=== PATIENT | female | born 1970 | race Caucasian/White ===

== ENCOUNTER 2018-10-03 03:33 | Emergency (ER) | payer MEDICAID ==
[~2018-10-03] VITALS: Ht 172.7 cm; Wt 90.0 kg
[~2018-10-03 03:33] MED LIST: BLAC200C4 PO; BUSP5TAB3 PO; CARB100T7 PO; POTA99TA18 PO
[2018-10-03 03:40] VITALS: BP 150/82
--- NOTE | 2018-10-03 04:15 | NUR ---
Received ambulance, then returned to pt room. Pt gone. CRN and EDMD notified. Pt not yet seen by provider.
== END 2018-10-03 04:15 | disposition left against medical advice (07) ==
LOC: ER 03:34
DX: J34.89 Other specified disorders of nose and nasal sinuses (principal); Z53.21 Procedure and treatment not carried out due to patient leaving prior to being seen by health care provider

== ENCOUNTER 2018-10-08 19:51 | Emergency (ER) | payer MEDICAID ==
[~2018-10-08] VITALS: Ht 172.7 cm; Wt 90.0 kg
[2018-10-08 19:56] VITALS: BP 145/86
--- NOTE | 2018-10-08 20:17 | NUR ---
I had put the patient in the lab chair in the hallway by triage, she is gone. I have since let security know and charge. I have swept the parking lot and hallways of ER and checked the bathrooms. I have her meds here in triage. Security will check cameras.
--- NOTE | 2018-10-08 20:27 | NUR ---
brent barriga from lab chair in [facility] near triage security reviewed cameras which show the patient leaving the er and the er lobby
--- NOTE | 2018-10-08 20:31 | NUR ---
Security has photos of her leaving the area and going out the door to outside. Calling her number but there is a different name associated with it.
== END 2018-10-08 20:33 | disposition left against medical advice (07) ==
LOC: ER 19:51
DX: R45.851 Suicidal ideations (principal); Z88.2 Allergy status to sulfonamides; Z88.1 Allergy status to other antibiotic agents; Z88.8 Allergy status to other drugs, medicaments and biological substances; Z53.21 Procedure and treatment not carried out due to patient leaving prior to being seen by health care provider

== ENCOUNTER → 2019-04-13 | Emergency (ER) | payer MEDICAID ==
[~2019-04-13] VITALS: Ht 172.7 cm; Wt 90.9 kg
[2019-04-13 17:33] VITALS: BP 114/72
== END | disposition home or self-care (01) ==
LOC: ER 17:25
DX: R07.81 Pleurodynia (principal); K21.9 Gastro-esophageal reflux disease without esophagitis; F17.200 Nicotine dependence, unspecified, uncomplicated; Z88.2 Allergy status to sulfonamides; Z88.1 Allergy status to other antibiotic agents; Z79.899 Other long term (current) drug therapy; W07.XXXA Fall from chair, initial encounter; Y93.89 Activity, other specified; Y92.89 Other specified places as the place of occurrence of the external cause; Y99.9 Unspecified external cause status
CPT/HCPCS: 99284

== ENCOUNTER 2020-01-24 11:53 | Emergency (ER) | payer MEDICAID ==
[~2020-01-24] VITALS: Ht 175.3 cm; Wt 92.7 kg
[2020-01-24 12:12] VITALS: BP 141/84
== END 2020-01-24 14:46 | disposition left against medical advice (07) ==
LOC: ER 11:54
DX: R11.0 Nausea (principal); F32.9 Major depressive disorder, single episode, unspecified; F41.9 Anxiety disorder, unspecified; Z59.0 Homelessness; Z53.21 Procedure and treatment not carried out due to patient leaving prior to being seen by health care provider

== ENCOUNTER 2020-06-21 10:33 | Emergency (ER) | payer MEDICAID ==
[~2020-06-21] VITALS: Ht 172.7 cm; Wt 87.0 kg
[2020-06-21] MEDS ORDERED: ondansetron/PF 4mg/2ml inj IV ONE (10:45)
[2020-06-21] MEDS ORDERED: normal saline 1000ML IV soln IV ONE (10:45)
[2020-06-21 11:12] LABS: BASOPHILS # (AUTO) 0.1 X10'3 (0-0.2); BASOPHILS % (AUTO) 0.6 % (0-1); EOSINOPHILS % (AUTO) 0.3 % (0-6); HEMOGLOBIN 16.9 g/dl (12.0-16.0); LYMPHOCYTES # (AUTO) 2.8 X10'3 (1.1-4.8); LYMPHOCYTES % (AUTO) 25.3 % (21-51); MEAN CORPUSCULAR HEMOGLOBIN 31.8 PG (27.0-31.0); MEAN CORPUSCULAR HGB CONC 34.4 g/dL (33.0-36.5); MEAN CORPUSCULAR VOLUME 92.3 FL (78-98); MEAN PLATELET VOLUME 7.5 FL (7.4-10.4); MONOCYTES # (AUTO) 0.6 X10'3 (0-0.9); MONOCYTES % (AUTO) 5.6 % (2-12); NEUTROPHILS # (AUTO) 7.5 X10'3 (1.8-7.7); NEUTROPHILS % (AUTO) 68.2 % (42-75); PLATELET COUNT 333 X10'3 (140-440); RED BLOOD COUNT 5.31 X10'6 (4.20-5.60); RED CELL DISTRIBUTION WIDTH 13.7 % (11.5-14.5)
[2020-06-21] MEDS ORDERED: ondansetron 4mg rapidly disintigrating tab PO ONE (11:20)
[2020-06-21 11:25] LABS: ALANINE AMINOTRANSFERASE 20 U/L (12-78); ALBUMIN 4.4 G/DL (3.4-5.0); ALBUMIN/GLOBULIN RATIO 0.9 (1.1-1.5); ALKALINE PHOSPHATASE 87 IU/L (46-116); ANION GAP 9 (8-16); ASPARTATE AMINO TRANSFERASE 14 U/L (10-37); BILIRUBIN,TOTAL 0.5 MG/DL (0.1-1.0); BLOOD UREA NITROGEN 17 MG/DL (7-18); BUN/CREATININE RATIO 12.7 (6.6-38.0); CALCIUM 10.4 MG/DL (8.5-10.1); CHLORIDE 106 MMOL/L (99-107); CREATININE 1.34 MG/DL (0.40-0.90); GLUCOSE 132 MG/DL (70-104); POTASSIUM 3.8 MMOL/L (3.5-5.1); SODIUM 143 MMOL/L (135-145); TOTAL CARBON DIOXIDE 28.1 MMOL/L (24-32); TOTAL PROTEIN 9.4 G/DL (6.4-8.2); eGFR 42 ML/MIN
[2020-06-21] MEDS ORDERED: ALBU6.7H9 INH (11:27)
[2020-06-21] MEDS ORDERED: ONDA4TAB6 PO (11:27)
[2020-06-21 12:04] VITALS: BP 105/62
== END 2020-06-21 11:55 | disposition home or self-care (01) ==
LOC: ER 10:34
DX: U07.1 COVID-19 (principal); R11.0 Nausea; R10.84 Generalized abdominal pain; R51.9 Headache, unspecified; R05 Cough; R19.7 Diarrhea, unspecified; K21.9 Gastro-esophageal reflux disease without esophagitis; F41.9 Anxiety disorder, unspecified; F32.9 Major depressive disorder, single episode, unspecified; Z72.0 Tobacco use; Z60.2 Problems related to living alone; Z88.2 Allergy status to sulfonamides; Z88.1 Allergy status to other antibiotic agents; Z88.8 Allergy status to other drugs, medicaments and biological substances; Z79.899 Other long term (current) drug therapy
CPT/HCPCS: 36415; 71045; 80053; 85025; 93005; 96361; 96374; 99285; J2405; J7030

== ENCOUNTER 2021-01-12 10:25 | Emergency (ER) | payer MEDICAID ==
[~2021-01-12] VITALS: Ht 172.7 cm; Wt 92.3 kg
[~2021-01-12 10:25] MED LIST changes: +ALBU6.7H9 INH; +ONDA4TAB6 PO
[2021-01-12 10:30] VITALS: BP 106/81
[2021-01-12 11:10] LABS: URINE HCG NEGATIVE (NEG)
[2021-01-12 11:13] LABS: CLARITY,URINE CLOUDY (Clear); COLOR,URINE YELLOW (Yellow); GLUCOSE, URINE NEGATIVE (Neg); KETONES,URINE NEGATIVE (Neg); LEUKOCYTE ESTERASE ,URINE SMALL (Neg); NITRITES, URINE POSITIVE (Neg); OCCULT BLOOD,URINE TRACE-INTACT (Neg); PROTEIN,URINE 30 mg/dl (Neg); UA COLLECTION TYPE CLN CATCH MIDSTREAM
[2021-01-12 11:26] LABS: TRICHOMONAS,URINE FEW /HPF (NEGATIVE)
[2021-01-12 11:27] LABS: WBC,URINE 20-30 /HPF (0-4)
[2021-01-12 11:28] LABS: BACTERIA,URINE 3+ /HPF (Neg); RBC,URINE NONE SEEN /HPF (0-2); SQUAMOUS EPITHELIAL CELL,UR MANY /LPF (FEW)
[2021-01-12 11:36] LABS: BASOPHILS % (AUTO) 0.2 % (0-1); EOSINOPHILS % (AUTO) 0.3 % (0-6); HEMOGLOBIN 14.1 g/dl (12.0-16.0); LYMPHOCYTES # (AUTO) 0.9 X10'3 (1.1-4.8); LYMPHOCYTES % (AUTO) 19.2 % (21-51); MEAN CORPUSCULAR HEMOGLOBIN 32.3 PG (27.0-31.0); MEAN CORPUSCULAR HGB CONC 34.3 g/dL (33.0-36.5); MEAN CORPUSCULAR VOLUME 94.3 FL (78-98); MEAN PLATELET VOLUME 7.4 FL (7.4-10.4); MONOCYTES # (AUTO) 0.3 X10'3 (0-0.9); MONOCYTES % (AUTO) 6.6 % (2-12); NEUTROPHILS # (AUTO) 3.6 X10'3 (1.8-7.7); NEUTROPHILS % (AUTO) 73.7 % (42-75); PLATELET COUNT 187 X10'3 (140-440); RED BLOOD COUNT 4.35 X10'6 (4.20-5.60); RED CELL DISTRIBUTION WIDTH 13.6 % (11.5-14.5); WHITE BLOOD COUNT 4.9 X10'3 (4.5-11.0)
[2021-01-12 11:50] LABS: ALANINE AMINOTRANSFERASE 15 U/L (12-78); ALBUMIN 3.1 G/DL (3.4-5.0); ALBUMIN/GLOBULIN RATIO 0.8 (1.1-1.5); ALKALINE PHOSPHATASE 67 IU/L (46-116); ANION GAP 9 (8-16); ASPARTATE AMINO TRANSFERASE 19 U/L (10-37); BILIRUBIN,TOTAL 0.4 MG/DL (0.1-1.0); BLOOD UREA NITROGEN 19 MG/DL (7-18); CALCIUM 8.4 MG/DL (8.5-10.1); CHLORIDE 106 MMOL/L (99-107); GLUCOSE 93 MG/DL (70-104); LIPASE 89 U/L (73-393); POTASSIUM 3.8 MMOL/L (3.5-5.1); SODIUM 141 MMOL/L (135-145); TOTAL CARBON DIOXIDE 26.5 MMOL/L (24-32); TOTAL PROTEIN 7.2 G/DL (6.4-8.2); eGFR 59 ML/MIN
[2021-01-12] MEDS ORDERED: CEPH250T PO (12:09)
== END 2021-01-12 12:59 | disposition home or self-care (01) ==
LOC: ER 10:25
DX: N30.90 Cystitis, unspecified without hematuria (principal); K21.9 Gastro-esophageal reflux disease without esophagitis; F41.9 Anxiety disorder, unspecified; F32.9 Major depressive disorder, single episode, unspecified; Z60.2 Problems related to living alone; Z88.2 Allergy status to sulfonamides; Z88.8 Allergy status to other drugs, medicaments and biological substances; Z79.899 Other long term (current) drug therapy
CPT/HCPCS: 36415; 80053; 81001; 81025; 83690; 85025; 99283

== ENCOUNTER 2021-04-26 20:05 | Emergency (ER) | payer MEDICAID | END 2021-04-26 21:47 | disposition left against medical advice (07) | LOC: ER 20:06 | DX: Z53.21 Procedure and treatment not carried out due to patient leaving prior to being seen by health care provider (principal) ==

== ENCOUNTER 2021-04-30 07:45 | Emergency (ER) | payer MEDICAID ==
[~2021-04-30] VITALS: Ht 172.7 cm; Wt 83.2 kg
[2021-04-30 08:41] VITALS: BP 137/87
[2021-04-30] MEDS ORDERED: CEPH250T PO (08:49)
[2021-04-30] MEDS ORDERED: DOXY100C76 PO (08:49)
== END 2021-04-30 09:12 | disposition home or self-care (01) ==
LOC: ER 07:46
DX: L00 Staphylococcal scalded skin syndrome (principal); F41.9 Anxiety disorder, unspecified; F32.9 Major depressive disorder, single episode, unspecified; K21.9 Gastro-esophageal reflux disease without esophagitis; Z88.2 Allergy status to sulfonamides; Z88.5 Allergy status to narcotic agent; Z88.1 Allergy status to other antibiotic agents; Z88.0 Allergy status to penicillin
CPT/HCPCS: 99283

== ENCOUNTER 2021-05-26 15:51 | Emergency (ER) | payer MEDICAID ==
[~2021-05-26] VITALS: Ht 172.7 cm; Wt 93.1 kg
[2021-05-26 16:28] VITALS: BP 150/93
== END 2021-05-26 19:55 | disposition home or self-care (01) ==
LOC: ER 15:52
DX: F15.20 Other stimulant dependence, uncomplicated (principal); K21.9 Gastro-esophageal reflux disease without esophagitis; Z88.2 Allergy status to sulfonamides; Z88.1 Allergy status to other antibiotic agents; Z88.8 Allergy status to other drugs, medicaments and biological substances; Z79.899 Other long term (current) drug therapy
CPT/HCPCS: 99281

== ENCOUNTER 2021-05-27 16:14 | Emergency (ER) | payer MEDICAID ==
[~2021-05-27] VITALS: Ht 172.7 cm; Wt 93.2 kg
[2021-05-27 23:46] VITALS: BP 125/86
== END 2021-05-27 23:49 | disposition home or self-care (01) ==
LOC: ER 16:16
DX: F15.10 Other stimulant abuse, uncomplicated (principal); F41.9 Anxiety disorder, unspecified; K21.9 Gastro-esophageal reflux disease without esophagitis; F32.9 Major depressive disorder, single episode, unspecified; Z00.01 Encounter for general adult medical examination with abnormal findings; Z88.2 Allergy status to sulfonamides
CPT/HCPCS: 99281

== ENCOUNTER 2023-05-09 10:18 | Emergency (ER) | payer MEDICAID ==
[~2023-05-09] VITALS: Ht 172.7 cm; Wt 119.8 kg
[~2023-05-09 10:18] MED LIST changes: +ALBU6.7H14 INH; -ALBU6.7H9 INH
[2023-05-09 10:35] VITALS: BP 157/97; PULSE 105; TEMP 98; O2SAT 96
[2023-05-09] MEDS ORDERED: ketorolac trometh. 30mg/ml inj. IM ONE (12:10)
[2023-05-09 12:16] VITALS: RESP 16
[2023-05-09] MEDS ORDERED: NAPR-56 PO (12:25)
--- NOTE | 2023-05-09 18:43 | NUR ---
I have reviewed and agree with all interventions, assessments performed and documented by Soheila RIBEIRO LVN
== END 2023-05-09 16:00 | disposition home or self-care (01) ==
LOC: ER 10:18
DX: M25.562 Pain in left knee (principal); K21.9 Gastro-esophageal reflux disease without esophagitis; F31.9 Bipolar disorder, unspecified; Z88.2 Allergy status to sulfonamides; Z88.8 Allergy status to other drugs, medicaments and biological substances; Z88.1 Allergy status to other antibiotic agents; Z79.899 Other long term (current) drug therapy
CPT/HCPCS: 73564; 73700; 96372; 99285; J1885

== ENCOUNTER 2024-02-25 19:58 | Emergency (ER) | payer MEDICAID ==
[~2024-02-25] VITALS: Ht 172.7 cm; Wt 111.4 kg
[2024-02-25 20:00] VITALS: BP 169/96; PULSE 108; RESP 18; TEMP 98.7; O2SAT 95
[2024-02-25 20:25] LABS: BASOPHILS # (AUTO) 0.1 X10'3 (0-0.2); BASOPHILS % (AUTO) 0.7 % (0-1); EOSINOPHILS % (AUTO) 0.5 % (0-6); HEMOGLOBIN 14.7 g/dl (12.0-16.0); LYMPHOCYTES # (AUTO) 2.8 X10'3 (1.1-4.8); MEAN CORPUSCULAR HEMOGLOBIN 31.1 PG (27.0-31.0); MEAN CORPUSCULAR HGB CONC 34.1 g/dL (33.0-36.5); MEAN CORPUSCULAR VOLUME 91.2 FL (78-98); MEAN PLATELET VOLUME 7.5 FL (7.4-10.4); MONOCYTES # (AUTO) 0.9 X10'3 (0-0.9); MONOCYTES % (AUTO) 9.1 % (2-12); NEUTROPHILS # (AUTO) 6.1 X10'3 (1.8-7.7); NEUTROPHILS % (AUTO) 61.7 % (42-75); PLATELET COUNT 314 X10'3 (140-440); RED BLOOD COUNT 4.71 X10'6 (4.20-5.60); RED CELL DISTRIBUTION WIDTH 15.3 % (11.5-14.5); WHITE BLOOD COUNT 9.9 X10'3 (4.5-11.0)
[2024-02-25 20:37] LABS: ALANINE AMINOTRANSFERASE 27 U/L (12-78); ALBUMIN 3.6 G/DL (3.4-5.0); ALBUMIN/GLOBULIN RATIO 0.7 (1.1-1.5); ALKALINE PHOSPHATASE 76 IU/L (46-116); ANION GAP 10 (8-16); ASPARTATE AMINO TRANSFERASE 29 U/L (10-37); BILIRUBIN,TOTAL 0.4 MG/DL (0.1-1.0); BLOOD UREA NITROGEN 26 MG/DL (7-18); BUN/CREATININE RATIO 14.2 (10.0-20.0); CALCIUM 10.1 MG/DL (8.5-10.1); CHLORIDE 101 MMOL/L (99-107); CREATININE 1.83 MG/DL (0.40-0.90); GLUCOSE 110 MG/DL (70-104); LIPASE 35 U/L (16-77); POTASSIUM 3.8 MMOL/L (3.5-5.1); SODIUM 136 MMOL/L (135-145); TOTAL CARBON DIOXIDE 24.6 MMOL/L (24-32); TOTAL PROTEIN 8.7 G/DL (6.4-8.2); eCRCL 36 ML/MIN; eGFR 29 ML/MIN
== END 2024-02-25 23:53 | disposition left against medical advice (07) ==
LOC: ER 19:59
DX: R19.7 Diarrhea, unspecified (principal); R10.9 Unspecified abdominal pain; Z53.21 Procedure and treatment not carried out due to patient leaving prior to being seen by health care provider
CPT/HCPCS: 36415; 74176; 80053; 83690; 85025

== ENCOUNTER 2024-06-03 17:37 | Emergency (ER) | payer MEDICAID ==
[~2024-06-03] VITALS: Ht 172.7 cm; Wt 99.5 kg
[~2024-06-03 17:37] MED LIST changes: -CARB100T7 PO; +TEG100T PO
[2024-06-03 18:33] VITALS: BP 144/87; PULSE 98; RESP 17; O2SAT 98
[2024-06-03 20:46] VITALS: TEMP 98.9
== END 2024-06-03 20:48 | disposition home or self-care (01) ==
LOC: ER 17:37
DX: F15.10 Other stimulant abuse, uncomplicated (principal); K21.9 Gastro-esophageal reflux disease without esophagitis; F41.9 Anxiety disorder, unspecified; F32.A Depression, unspecified; Z60.2 Problems related to living alone; Z88.2 Allergy status to sulfonamides; Z88.8 Allergy status to other drugs, medicaments and biological substances; Z88.1 Allergy status to other antibiotic agents; Z79.899 Other long term (current) drug therapy
CPT/HCPCS: 99281

== ENCOUNTER 2024-06-14 17:07 | Emergency (ER) | payer MEDICAID ==
[~2024-06-14] VITALS: Ht 170.2 cm; Wt 115.6 kg
[2024-06-14 17:12] VITALS: BP 144/110; PULSE 103; RESP 18; TEMP 97.8; O2SAT 96
== END 2024-06-14 19:19 | disposition home or self-care (01) ==
LOC: ER 17:07
DX: F15.10 Other stimulant abuse, uncomplicated (principal); K21.9 Gastro-esophageal reflux disease without esophagitis; F41.9 Anxiety disorder, unspecified; F32.A Depression, unspecified; Z88.2 Allergy status to sulfonamides; Z88.5 Allergy status to narcotic agent; Z88.0 Allergy status to penicillin; Z88.8 Allergy status to other drugs, medicaments and biological substances
CPT/HCPCS: 99281

== ENCOUNTER 2024-07-19 19:51 | Emergency (ER) | payer MEDICAID ==
[~2024-07-19] VITALS: Ht 172.7 cm; Wt 113.2 kg
[2024-07-19 20:42] VITALS: BP 134/86; PULSE 78; RESP 16; TEMP 97.8; O2SAT 98
== END 2024-07-19 20:43 | disposition home or self-care (01) ==
LOC: ER 19:52
DX: S61.512D Laceration without foreign body of left wrist, subsequent encounter (principal); S61.511D Laceration without foreign body of right wrist, subsequent encounter; Z48.00 Encounter for change or removal of nonsurgical wound dressing; K21.9 Gastro-esophageal reflux disease without esophagitis; Z88.0 Allergy status to penicillin; Z88.8 Allergy status to other drugs, medicaments and biological substances; Z79.899 Other long term (current) drug therapy; X58.XXXD Exposure to other specified factors, subsequent encounter
CPT/HCPCS: 99284; A6446; A6449

== ENCOUNTER 2024-08-20 13:32 | Emergency (ER) | payer MEDICAID ==
[~2024-08-20] VITALS: Ht 172.7 cm; Wt 109.0 kg
[2024-08-20 14:12] VITALS: BP 138/70; PULSE 78; RESP 17; TEMP 98.8; O2SAT 99
== END 2024-08-20 14:13 | disposition home or self-care (01) ==
LOC: ER 13:32
DX: Z00.00 Encounter for general adult medical examination without abnormal findings (principal); F15.10 Other stimulant abuse, uncomplicated; F32.A Depression, unspecified; F41.9 Anxiety disorder, unspecified; K21.9 Gastro-esophageal reflux disease without esophagitis; Z88.0 Allergy status to penicillin; Z88.5 Allergy status to narcotic agent
CPT/HCPCS: 99281

== ENCOUNTER 2025-01-03 23:44 | Emergency (ER) | payer MEDICAID ==
[~2025-01-03] VITALS: Ht 175.3 cm; Wt 98.5 kg
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
[2025-01-04 02:27] VITALS: BP 145/89; PULSE 92; RESP 20; TEMP 98.6; O2SAT 97
== END 2025-01-04 02:29 | disposition home or self-care (01) ==
LOC: ER 23:44
DX: F41.9 Anxiety disorder, unspecified (principal); F17.200 Nicotine dependence, unspecified, uncomplicated; Z76.0 Encounter for issue of repeat prescription; Z88.5 Allergy status to narcotic agent; Z88.1 Allergy status to other antibiotic agents; Z79.899 Other long term (current) drug therapy; Z60.2 Problems related to living alone
CPT/HCPCS: 99281

== ENCOUNTER 2025-01-20 19:26 | Emergency (ER) | payer MEDICAID ==
[~2025-01-20] VITALS: Ht 175.3 cm; Wt 93.2 kg
--- NOTE | 2025-01-20 19:32 | Physician Documentation ---
History of Present Illness ~ Chief Complaint: Mechanical Fall Stated Complaint: NEAR SYNCOPY Time Seen by MD: 19:27 Primary Medical Doctor: BRAYDEN BOX 54-year-old female presents to the ED with a complaint of weakness x1 day. Patient states she got out of [facility] this morning and realized she did not have her belongings, then called EMS. States that she may have fallen injuring her head. Appears intoxicated, denies any history of diabetes. States that while in [facility] she did not receive her DEPAKOTE, LATUDA AND CELEXA. Day of Fall: Jan 20, 2025 Tetanus within 5 Years?: Yes Medication Reconciliation Allergies: Coded Allergies: meperidine (Verified Allergy, Intermediate, "SKIN TURNS GHOST WHITE", 01/03/25) ampicillin (Verified Adverse Reaction, Unknown, "LUMPS ON HEAD", 01/03/25) Scheduled Albuterol Sulfate (Proventil Hfa), 2 PUFFS INH Q6H Black Cohosh Root (Black Cohosh), 300 MG PO DAILY, (Reported) Buspirone Hcl* (Buspar*), 15 MG PO TID, (Reported) Carbamazepine (Carbamazepine), 1 TAB PO Q12H, (Reported) Ondansetron Hcl (Zofran), 1 TAB PO Q6H Potassium Gluconate (Potassium Gluconate), 500 MG PO DAILY, (Reported) Past Medical History Past Medical History: No Pertinent History, GERD, Anxiety, Depression Past Surgical History: no surgical history Other Past Family History: NONE Alcohol Use: Rarely Drug Use: none Lives with: Alone Lives In: Home Review of Systems All Other Systems at this time: Reviewed and Negative ROS As stated above in the HPI, otherwise all systems are reviewed and negative. Physical Exam Physical Exam General: Alert, no apparent distress. head: No evidence of injury and no hematomas ,no lacerations Respiratory: Lungs clear, no respiratory distress. Cardiovascular: Regular rate and rhythm, no murmurs. Gastrointestinal: Soft, nontender, nondistended. Bowels sounds present. Neurologic: Oriented x4. Psychiatric: Normal mood and affect. Skin: Normal color, warm and dry. No edema, no ecchymosis. Progress Results/Orders Results/Orders Orders - PETAR QUILES [employer]MENT SERVICER Chest,Single View (01/20/25 19:47) Monitor (01/20/25 19:47) Saline Lock (01/20/25 19:47) Oxygen (01/20/25 19:47) Electrocardiogram (01/20/25 19:47) Cult Urine + [place] (01/20/25 23:27) Completed Orders - PETAR QUILES [employer]QUIPMENT SERVICER Cbc/Diff (01/20/25 19:37) BMP (01/20/25 19:37) Normal Saline 1000ml (Sodium Chloride 10 (01/20/25 19:45) Chest,Single View (01/20/25 19:47) PBNP (01/20/25 19:47) Electrocardiogram (01/20/25 19:47) Hs Troponin I W Calculations (01/20/25 19:47) Hs Troponin I W Calculations (01/20/25 21:47) Ua W/Microscopic, Cult If Ind (01/20/25 23:11) Medications Received in ER Medications (Trade) Dose Ordered Sig/Juan Route PRN Reason Start Time Stop Time Status Last Admin Dose Admin (sodium chloride 1000ml IV soln) 1,000 ml ONCE ONCE IVB 01/20/25 19:45 01/20/25 19:47 DC 01/20/25 20:17 1,000 ML Vital Signs 01/20/25 01/20/25 01/20/25 01/20/25 19:30 19:49 21:02 22:02 Temp 97.5 Pulse 103 78 70 Resp 16 16 12 15 B/P (MAP) 82/43 109/68 (82) 139/73 (95) Pulse Ox 94 100 100 O2 Flow Rate 0 0 0 01/20/25 23:21 Temp 97.6 Pulse 82 Resp 18 B/P (MAP) 107/64 Pulse Ox 98 Laboratory Tests Test 01/20/25 20:14 01/20/25 22:49 01/20/25 23:11 White Blood Count 11.4 H Red Blood Count 4.18 L Hemoglobin 12.9 Hematocrit 38.8 Mean Corpuscular Volume 92.8 Mean Corpuscular Hemoglobin 30.8 Mean Corpuscular Hemoglobin Concent 33.2 Red Cell Distribution Width 14.4 Platelet Count 346 Mean Platelet Volume 7.3 L Neutrophils (%) (Auto) 65.8 Lymphocytes (%) (Auto) 26.6 Monocytes (%) (Auto) 7.1 Eosinophils (%) (Auto) 0.2 Basophils (%) (Auto) 0.3 Neutrophils # (Auto) 7.5 Lymphocytes # (Auto) 3.0 Monocytes # (Auto) 0.8 Eosinophils # (Auto) 0.0 Basophils # (Auto) 0.0 CBC Comment Sodium Level 138 Potassium Level 3.5 Chloride Level 104 Carbon Dioxide Level 26.3 Anion Gap 8 Blood Urea Nitrogen 25 H Creatinine 2.04 H Estimated GFR/1.73 m2 25 BUN/Creatinine Ratio 12.3 Glucose Level 156 H Calcium Level 9.8 Troponin I High Sensitivity 8 11 Pro-B-Type Natriuretic Peptide 270 H Albumin 3.5 Chemistry Comments Troponin I High Sens Percent Delta 37 Troponin I Hi Sens Absolute Change 3 Urine Specimen Description Cln catch midstream Urine Color Yellow Urine Clarity Cloudy Urine pH 7.0 Urine Specific [place] 1.015 Urine Protein 100 H Urine Glucose (UA) Negative Urine Ketones Trace H Urine Occult Blood Negative Urine Nitrite Negative Urine Bilirubin Small Urine Urobilinogen 0.2 Urine Leukocyte Esterase Trace H Urine RBC None seen Urine WBC 0-4 Urine Squamous Epithelial Cells Few Urine Bacteria 4+ Urine Culture Indicated Indicated Volume Urine Centrifuged 10 ml Urine Comment Medical Decision Making Findings Pt received a fluid bolus patient and reports improved symptoms .she states that she is ready to go home. She had [id number] dehydration upon arrival based on her laboratory values. I will respect patient's wishes in and discharge her from the ED Differential Dx:Considerations: Include: Closed head injury, Cardiac injury, Fracture(s), Intraabdominal injury, Pneumothorax, Cerebral contusion, Pulmonary contusion, Spine injury, Tracheal injury, Urological injury, Vascular injury, Abrasion(s), Contusion(s), Foreign body(s), Hematoma(s), Laceration(s), Ence phalopathy, Other Departure Disposition: HOME / SELF CARE / HOMELESS Impression: Primary Impression: Methamphetamine abuse Additional Impression: General medical exam Condition: Stable Discharge Instructions: Fall Prevention in the Home, Adult, [id number] Referrals: NO PRIMARY CARE PROVIDER (PCP) Education Educated: Patient Educated regarding: diagnosis Signature Scribe Signature: f Attestation: Scribed for Petar Quiles Fringe Maker by Petar Dolan NP . 01/20/25 23:38 PETAR QUILES NP Jan 20, 2025 19:32
--- NOTE | 2025-01-20 19:54 | ELECTROCARDIOGRAPH REPORT ---
[facility] Test Date: 2025-01-20 Test Time: 19:52:30 Pat Name: SONU DELCID Department: EMERGENCY ROOM [id number] Room: Gender: F Data Entry Machine Operator: ALFREDITO : [id number] Requested By: JANELL QUILES [facility]: [id number] Reading MD: Dr. Gilbert Rodriguez Measurements Intervals [place] Rate: 105 P: 56 UT: 143 QRS: 38 QRSD: 82 T: 103 QT: 349 QTc: 462 Interpretive Statements Sinus tachycardia Abnormal R-wave progression, early transition Nonspecific T abnormalities, lateral leads Electronically Signed On 01-20-2025 20:29:[address] Gilbert Rodriguez Please click the below link to view image of tracing.
[2025-01-20] MEDS: normal saline 1000ML IV soln IVB ONE (20:17)
[2025-01-20 20:32] LABS: BASOPHILS % (AUTO) 0.3 % (0-1); EOSINOPHILS % (AUTO) 0.2 % (0-6); HEMATOCRIT 38.8 % (35.0-45.0); HEMOGLOBIN 12.9 g/dl (12.0-16.0); LYMPHOCYTES % (AUTO) 26.6 % (21-51); MEAN CORPUSCULAR HEMOGLOBIN 30.8 PG (27.0-31.0); MEAN CORPUSCULAR HGB CONC 33.2 g/dL (33.0-36.5); MEAN CORPUSCULAR VOLUME 92.8 FL (78-98); MEAN PLATELET VOLUME 7.3 FL (7.4-10.4); MONOCYTES # (AUTO) 0.8 X10'3 (0-0.9); MONOCYTES % (AUTO) 7.1 % (2-12); NEUTROPHILS # (AUTO) 7.5 X10'3 (1.8-7.7); NEUTROPHILS % (AUTO) 65.8 % (42-75); PLATELET COUNT 346 X10'3 (140-440); RED BLOOD COUNT 4.18 X10'6 (4.20-5.60); RED CELL DISTRIBUTION WIDTH 14.4 % (11.5-14.5); WHITE BLOOD COUNT 11.4 X10'3 (4.5-11.0)
--- NOTE | 2025-01-20 20:44 | RADIOLOGY REPORT ---
Procedure: DI CHEST,SINGLE VIEW 01/20/2025 07:51 PM Indication: CP Comparison: CHEST,SINGLE VIEW on DOS: 06/21/20 TECHNIQUE: DI CHEST,SINGLE VIEW FINDINGS: The lungs are clear. Heart border is normal in size. No acute osseus abnormality. IMPRESSION: 1. No acute cardiopulmonary disease.
[2025-01-20 20:59] LABS: ALBUMIN 3.5 G/DL (3.4-5.0); ANION GAP 8 (8-16); BLOOD UREA NITROGEN 25 MG/DL (7-18); BUN/CREATININE RATIO 12.3 (10.0-20.0); CALCIUM 9.8 MG/DL (8.5-10.1); CHLORIDE 104 MMOL/L (99-107); CREATININE 2.04 MG/DL (0.40-0.90); GLUCOSE 156 MG/DL (70-104); POTASSIUM 3.5 MMOL/L (3.5-5.1); PRO BRAIN NATRIURETIC PEPTIDE 270 PG/ML (0-125); SODIUM 138 MMOL/L (135-145); TOTAL CARBON DIOXIDE 26.3 MMOL/L (24-32); eCRCL 33 ML/MIN; eGFR 25 ML/MIN
[2025-01-20 23:21] VITALS: BP 107/64; PULSE 82; RESP 18; TEMP 97.6; O2SAT 98
[2025-01-20 23:25] LABS: BILIRUBIN,URINE SMALL (Neg); CLARITY,URINE CLOUDY (Clear); COLOR,URINE YELLOW (Yellow); GLUCOSE, URINE NEGATIVE (Neg); KETONES,URINE TRACE mg/dl (Neg); LEUKOCYTE ESTERASE ,URINE TRACE (Neg); NITRITES, URINE NEGATIVE (Neg); OCCULT BLOOD,URINE NEGATIVE (Neg); PROTEIN,URINE 100 mg/dl (Neg); UROBILINOGEN,URINE 0.2 E.U/dL (0.2-1.0)
[2025-01-20 23:27] LABS: UA COLLECTION TYPE CLN CATCH MIDSTREAM
[2025-01-20 23:31] LABS: BACTERIA,URINE 4+ /HPF (Neg); RBC,URINE NONE SEEN /HPF (0-2); SQUAMOUS EPITHELIAL CELL,UR FEW /LPF (FEW); WBC,URINE 0-4 /HPF (0-4)
== END 2025-01-20 23:30 | disposition home or self-care (01) ==
LOC: ER 19:26
DX: F15.10 Other stimulant abuse, uncomplicated (principal); R06.02 Shortness of breath; Z88.0 Allergy status to penicillin; Z88.5 Allergy status to narcotic agent; Z88.8 Allergy status to other drugs, medicaments and biological substances
CPT/HCPCS: 36415; 71045; 80048; 81001; 83880; 84484; 85025; 87088; 93005; 96360; 99285; J7030